=== PATIENT | female | born 1950 | race Caucasian/White ===

== ENCOUNTER → 2017-02-03 | Outpatient (CLI) | payer OTHER | LOC: FIMAGING 09:25 | PROVIDERS: ATTEND Family Medicine | DX: I51.7 Cardiomegaly (principal); E83.59 Other disorders of calcium metabolism; E11.9 Type 2 diabetes mellitus without complications ==

== ENCOUNTER → 2017-02-15 | Outpatient (CLI) | payer OTHER | LOC: FIMAGING 13:01 | PROVIDERS: ATTEND Family Medicine | DX: Z12.31 Encounter for screening mammogram for malignant neoplasm of breast (principal) | CPT/HCPCS: G0202 ==

== ENCOUNTER → 2017-03-31 | Outpatient (CLI) | payer OTHER | LOC: BHFA 08:30 | PROVIDERS: ATTEND Internal Medicine Cardiovascular Disease | DX: I48.91 Unspecified atrial fibrillation (principal); I34.0 Nonrheumatic mitral (valve) insufficiency; R06.02 Shortness of breath | CPT/HCPCS: 78452; 93017; 93306; A9500 ==

== ENCOUNTER → 2017-04-29 | Outpatient (CLI) | payer OTHER | LOC: BHFA 13:30 | PROVIDERS: ATTEND Internal Medicine Cardiovascular Disease | DX: I48.91 Unspecified atrial fibrillation (principal); R06.02 Shortness of breath ==

== ENCOUNTER → 2018-05-09 | Outpatient (CLI) | payer OTHER | LOC: BHFA 14:30 | PROVIDERS: ATTEND Internal Medicine Cardiovascular Disease | DX: I48.91 Unspecified atrial fibrillation (principal); I34.0 Nonrheumatic mitral (valve) insufficiency ==

== ENCOUNTER → 2018-05-19 | Outpatient (CLI) | payer OTHER | LOC: BHCLAF 13:15 | PROVIDERS: ATTEND Internal Medicine Cardiovascular Disease | DX: I48.91 Unspecified atrial fibrillation (principal); I34.0 Nonrheumatic mitral (valve) insufficiency | CPT/HCPCS: 93306-PO ==

== ENCOUNTER → 2018-08-23 | Outpatient (CLI) | payer OTHER | DX: I48.91 Unspecified atrial fibrillation (principal); I42.9 Cardiomyopathy, unspecified ==